=== PATIENT | male | born 1980 | race Two or more races ===

== ENCOUNTER 2021-06-09 18:55 | Emergency (ER) | payer MEDICAID ==
[~2021-06-09] VITALS: Ht 160 cm; Wt 0.6 kg
[2021-06-09] MEDS ORDERED: TETanus/Pertussis (Acell)/Diphther VAC/PF (Tdap-Adult) 0.5ml syringe IMVAC ONE (20:10)
[2021-06-09] MEDS ORDERED: LIDOcaine Viscous 15ml cup TP ONE (20:10)
[2021-06-09] MEDS ORDERED: acetaminophen 325mg tablet PO ONE (20:15)
[2021-06-09] MEDS ORDERED: ketorolac trometh inj. 60 MG/2 ML VIAL IM ONE (20:15)
[2021-06-09] MEDS ORDERED: HYDROcodone/acetaminophen 5mg/325mg tablet PO ONE (20:55)
[2021-06-09] MEDS ORDERED: SULF1TAB49 PO (21:23)
[2021-06-09] MEDS ORDERED: HYDR-3965 PO (21:23)
[2021-06-09] MEDS ORDERED: sulfamethoxazole/trimethoprim DS (800/160mg) tablet PO ONE (21:25)
[2021-06-09] MEDS ORDERED: ceFAZolin 1gm IM kit IM ONE (21:25)
[2021-06-09] MEDS ORDERED: mupirocin 2% ointment 22GM TP ONE (21:30)
--- NOTE | 2021-06-09 22:16 | NUR ---
relieving RN for break, medicated per MD order, left knee has been sutured, no bleeding, pt is resting quietly
[2021-06-09 22:43] VITALS: BP 126/84
== END 2021-06-09 22:45 | disposition home or self-care (01) ==
LOC: ER 18:56 → UNDOADMIN 06-10 02:46 → ICU 2S 06-10 02:46
DX: S81.012A Laceration without foreign body, left knee, initial encounter (principal); Z56.0 Unemployment, unspecified; W26.8XXA Contact with other sharp object(s), not elsewhere classified, initial encounter; Y93.89 Activity, other specified; Y92.89 Other specified places as the place of occurrence of the external cause; Y99.8 Other external cause status
CPT/HCPCS: 12004; 73560; 90471; 90715; 96372; 99284; J0690; J1885; 99285